=== PATIENT | female | born 1965 | race African-American/Black ===

== ENCOUNTER 2021-03-06 13:05 | Inpatient (IN) | payer OTHER ==
[2021-03-06 14:17] VITALS: BMI 26.9
[2021-03-06] MEDS ORDERED: NICOTINE POLACRILEX 2 MG GUM BUC PRN (15:58)
[2021-03-06] MEDS ORDERED: ACETAMINOPHEN 325 MG TABLET (FP) PO PRN ×2 (15:58)
[2021-03-06] MEDS ORDERED: ONDANSETRON *ODT* 4 MG TABLET SL PRN (15:58)
[2021-03-06] MEDS ORDERED: MAGNESIUM CITRATE 300 ML BOTTLE PO PRN (15:58)
[2021-03-06] MEDS ORDERED: IBUPROFEN 400 MG TABLET (FP) PO PRN (15:58)
[2021-03-06] MEDS ORDERED: BISMUTH SUBSALICYLATE 524 MG/30 ML PO PRN (15:58)
[2021-03-06] MEDS ORDERED: MENTHOL/PHENOL 1 EACH UD MM PRN (15:58)
[2021-03-06] MEDS ORDERED: LORazepam 1 MG TABLET PO PRN (15:58)
[2021-03-06] MEDS ORDERED: MAG HYDROX/AL HYDROX/SIMETH 30 ML UNIT-DOSE CUP PO PRN (15:58)
[2021-03-06] MEDS ORDERED: MAGNESIUM HYDROX 2400MG/30ML ORAL SUSPENSION 30 ML CUP PO PRN (15:58)
[2021-03-06] MEDS: NICOTINE 14 MG/24 HOURS TOPICAL PATCH TD SCH (18:51)
[2021-03-06] MEDS: hydrOXYzine PAMOATE 25 MG CAPSULE (FP) PO SCH ×2 (18:55→22:16)
[2021-03-06] MEDS: PRENATAL VITAMINS W/ FOLIC ACID TABLET (FP) PO SCH (18:55)
[2021-03-06] MEDS: LORazepam 2 MG TABLET PO SCH ×2 (18:55→22:16)
[2021-03-06] MEDS: INSULIN SLIDING SCALE (NOVOLOG) 1 VIAL SQ SCH ×2 (19:50→22:21)
[2021-03-06] MEDS ORDERED: INSULIN (NOVOLOG) ASPART 100 UNITS/ML 10ML VIAL ONE ×3 (20:27→22:19)
[2021-03-06] MEDS: MELATONIN 5 MG TABLETS PO SCH (22:16)
[2021-03-06] MEDS: THIAMINE HCL 100 MG TABLET (FP) PO SCH (22:16)
[2021-03-06] MEDS: hydrALAZINE HCL 25 MG TABLET (FP) PO SCH (23:50)
[2021-03-07] MEDS: LORazepam 2 MG TABLET PO SCH ×4 (05:50→22:32)
[2021-03-07] MEDS: hydrOXYzine PAMOATE 25 MG CAPSULE (FP) PO SCH ×5 (05:50→22:40)
[2021-03-07] MEDS ORDERED: INSULIN (NOVOLOG) ASPART 100 UNITS/ML 10ML VIAL ONE ×4 (05:53→22:13)
[2021-03-07] MEDS: INSULIN SLIDING SCALE (NOVOLOG) 1 VIAL SQ SCH ×4 (07:05→22:35)
[2021-03-07] MEDS: PRENATAL VITAMINS W/ FOLIC ACID TABLET (FP) PO SCH (10:16)
[2021-03-07] MEDS: NICOTINE 14 MG/24 HOURS TOPICAL PATCH TD SCH (10:16)
[2021-03-07] MEDS: METHOCARBAMOL 500 MG TABLET PO PRN ×2 (10:17→22:35)
[2021-03-07] MEDS: hydrALAZINE HCL 25 MG TABLET (FP) PO SCH ×2 (10:17→22:32)
[2021-03-07] MEDS ORDERED: OXYBUTYNIN CHLORIDE 5 MG TABLET PO SCH (11:15)
[2021-03-07] MEDS: FLUoxetine HCL 10 MG TABLET PO SCH (11:33)
[2021-03-07] MEDS: FLUoxetine HCL 20 MG CAPSULE PO SCH (11:34)
[2021-03-07] MEDS: FAMOTIDINE 20 MG TABLET PO SCH ×2 (12:20→22:31)
[2021-03-07 13:33] LABS: HEMATOCRIT 45.5 % (32.4-45.2); HEMOGLOBIN 15.4 GM/dL (10.7-15.3); MCH 33.7 pg (25.7-33.7); MEAN CELL VOLUME 99.3 fl (80-96); MEAN PLT VOLUME 9.4 fl (7.5-11.1); PLATELET COUNT 145 10^3/uL (134-434); RBC 4.58 M/mm3 (3.60-5.2); RDW 15.3 % (11.6-15.6)
[2021-03-07 13:50] LABS: CHLORIDE 91 mmol/L (98-107); SODIUM 135 mmol/L (136-145)
[2021-03-07 14:10] LABS: ALBUMIN 3.3 g/dl (3.4-5.0); GLUCOSE,RANDOM 122 mg/dL (74-106)
[2021-03-07 14:11] LABS: BLOOD UREA NITROGEN 7.5 mg/dL (7-18); CALCIUM 9.3 mg/dL (8.5-10.1); CO2 33 mmol/L (21-32); CREATININE 0.6 mg/dL (0.55-1.3); SGOT/AST 95 U/L (15-37); SGPT/ALT 97 U/L (13-61)
[2021-03-07 14:12] LABS: TOT PROT 6.7 g/dl (6.4-8.2)
[2021-03-07 14:13] LABS: ALK PHOS 67 U/L (45-117)
[2021-03-07 14:18] LABS: BILIRUBIN,TOTAL 1.3 mg/dL (0.2-1)
[2021-03-07 14:22] LABS: ANION GAP 11 MMOL/L (8-16)
[2021-03-07] MEDS: OXYBUTYNIN CHLORIDE 5 MG TABLET PO SCH ×2 (14:45→22:31)
[2021-03-07] MEDS ORDERED: POTASSIUM CHLORIDE ORAL LIQUID 20 MEQ/15 ML PO ONE ×2 (15:00→19:00)
[2021-03-07] MEDS: MELATONIN 5 MG TABLETS PO SCH (22:31)
[2021-03-07] MEDS: QUEtiapine FUMARATE 50 MG TABLET PO SCH (22:32)
[2021-03-07] MEDS: MONTELUKAST NA 10 MG TABLET PO SCH (22:32)
[2021-03-07] MEDS: THIAMINE HCL 100 MG TABLET (FP) PO SCH (22:32)
[2021-03-08] MEDS: hydrOXYzine PAMOATE 25 MG CAPSULE (FP) PO SCH ×3 (05:47→13:38)
[2021-03-08] MEDS: LORazepam 1 MG TABLET PO SCH ×4 (05:47→22:00)
[2021-03-08] MEDS ORDERED: INSULIN (NOVOLOG) ASPART 100 UNITS/ML 10ML VIAL ONE ×3 (07:36→18:06)
[2021-03-08] MEDS: INSULIN SLIDING SCALE (NOVOLOG) 1 VIAL SQ SCH ×4 (07:44→22:00)
[2021-03-08] MEDS: FLUoxetine HCL 20 MG CAPSULE PO SCH (10:19)
[2021-03-08] MEDS: FAMOTIDINE 20 MG TABLET PO SCH ×2 (10:19→22:00)
[2021-03-08] MEDS: PRENATAL VITAMINS W/ FOLIC ACID TABLET (FP) PO SCH (10:21)
[2021-03-08] MEDS: hydrALAZINE HCL 25 MG TABLET (FP) PO SCH ×2 (10:21→22:00)
[2021-03-08] MEDS: OXYBUTYNIN CHLORIDE 5 MG TABLET PO SCH ×2 (10:22→22:00)
[2021-03-08] MEDS: NICOTINE 14 MG/24 HOURS TOPICAL PATCH TD SCH (10:24)
[2021-03-08] MEDS: FLUoxetine HCL 10 MG TABLET PO SCH (12:35)
[2021-03-08] MEDS ORDERED: POTASSIUM CHLORIDE ORAL LIQUID 20 MEQ/15 ML PO ONE ×2 (14:30→18:30)
[2021-03-08] MEDS: THIAMINE HCL 100 MG TABLET (FP) PO SCH (21:59)
[2021-03-08] MEDS: MELATONIN 5 MG TABLETS PO SCH (21:59)
[2021-03-08] MEDS: QUEtiapine FUMARATE 50 MG TABLET PO SCH (22:00)
[2021-03-08] MEDS: ATORVASTATIN CA 20 MG TABLET (FP) PO SCH (22:00)
[2021-03-08] MEDS: MONTELUKAST NA 10 MG TABLET PO SCH (22:00)
[2021-03-09] MEDS ORDERED: LORazepam 0.5 MG TABLET PO PRN
[2021-03-09] MEDS: LORazepam 0.5 MG TABLET PO SCH ×4 (06:06→22:13)
[2021-03-09] MEDS: INSULIN SLIDING SCALE (NOVOLOG) 1 VIAL SQ SCH ×4 (07:37→23:17)
[2021-03-09] MEDS ORDERED: PATIENT'S OWN MEDICATION (NON-FORMULARY) (Atenolol/Chlorthalidone [Atenolol-Chlorthalidone PO SCH (10:00)
[2021-03-09] MEDS: ASPIRIN COATED 81 MG TABLET.EC PO SCH (10:06)
[2021-03-09] MEDS: FAMOTIDINE 20 MG TABLET PO SCH ×2 (10:06→22:12)
[2021-03-09] MEDS: PRENATAL VITAMINS W/ FOLIC ACID TABLET (FP) PO SCH (10:06)
[2021-03-09] MEDS: NIFEdipine E.R. 90 MG TABLET PO SCH (10:07)
[2021-03-09] MEDS: hydrALAZINE HCL 25 MG TABLET (FP) PO SCH ×2 (10:07→22:15)
[2021-03-09] MEDS: OXYBUTYNIN CHLORIDE 5 MG TABLET PO SCH ×2 (10:08→22:12)
[2021-03-09] MEDS: FLUoxetine HCL 10 MG CAPSULE PO SCH (10:08)
[2021-03-09] MEDS: CHLORTHALIDONE 25 MG TABLET PO SCH (10:08)
[2021-03-09] MEDS: NICOTINE 14 MG/24 HOURS TOPICAL PATCH TD SCH (10:46)
[2021-03-09] MEDS: ATENOLOL 50 MG TABLET (FP) PO SCH (10:48)
[2021-03-09] MEDS ORDERED: INSULIN (NOVOLOG) ASPART 100 UNITS/ML 10ML VIAL ONE ×3 (11:37→22:11)
[2021-03-09] MEDS: QUEtiapine FUMARATE 50 MG TABLET PO SCH (22:11)
[2021-03-09] MEDS: ATORVASTATIN CA 20 MG TABLET (FP) PO SCH (22:12)
[2021-03-09] MEDS: MELATONIN 5 MG TABLETS PO SCH (22:12)
[2021-03-09] MEDS: MONTELUKAST NA 10 MG TABLET PO SCH (22:12)
[2021-03-09] MEDS: THIAMINE HCL 100 MG TABLET (FP) PO SCH (22:12)
[2021-03-09] MEDS: INSULIN (LEVEMIR) 100 UNITS/ML UNITS SQ SCH (23:17)
[2021-03-10] MEDS ORDERED: LORazepam 0.5 MG TABLET PO ONE (05:00)
[2021-03-10] MEDS ORDERED: INSULIN (NOVOLOG) ASPART 100 UNITS/ML 10ML VIAL ONE ×4 (07:03→22:20)
[2021-03-10] MEDS: INSULIN SLIDING SCALE (NOVOLOG) 1 VIAL SQ SCH ×4 (07:06→22:22)
[2021-03-10] MEDS: PRENATAL VITAMINS W/ FOLIC ACID TABLET (FP) PO SCH (10:13)
[2021-03-10] MEDS: ASPIRIN COATED 81 MG TABLET.EC PO SCH (10:13)
[2021-03-10] MEDS: FAMOTIDINE 20 MG TABLET PO SCH ×2 (10:13→22:17)
[2021-03-10] MEDS: FLUoxetine HCL 10 MG CAPSULE PO SCH (10:14)
[2021-03-10] MEDS: CHLORTHALIDONE 25 MG TABLET PO SCH (10:14)
[2021-03-10] MEDS: NIFEdipine E.R. 90 MG TABLET PO SCH (10:14)
[2021-03-10] MEDS: hydrALAZINE HCL 25 MG TABLET (FP) PO SCH ×2 (10:14→22:17)
[2021-03-10] MEDS: OXYBUTYNIN CHLORIDE 5 MG TABLET PO SCH ×2 (10:15→22:17)
[2021-03-10] MEDS: ATENOLOL 50 MG TABLET (FP) PO SCH (10:15)
[2021-03-10] MEDS: NICOTINE 14 MG/24 HOURS TOPICAL PATCH TD SCH (10:18)
[2021-03-10] MEDS: ATORVASTATIN CA 20 MG TABLET (FP) PO SCH (22:17)
[2021-03-10] MEDS: THIAMINE HCL 100 MG TABLET (FP) PO SCH (22:17)
[2021-03-10] MEDS: MONTELUKAST NA 10 MG TABLET PO SCH (22:17)
[2021-03-10] MEDS: QUEtiapine FUMARATE 50 MG TABLET PO SCH (22:17)
[2021-03-10] MEDS: MELATONIN 5 MG TABLETS PO SCH (22:19)
[2021-03-10] MEDS: INSULIN (LEVEMIR) 100 UNITS/ML UNITS SQ SCH (22:22)
[2021-03-11] MEDS: INSULIN SLIDING SCALE (NOVOLOG) 1 VIAL SQ SCH ×3 (08:07→16:40)
[2021-03-11] MEDS: hydrALAZINE HCL 25 MG TABLET (FP) PO SCH (10:04)
[2021-03-11] MEDS: ASPIRIN COATED 81 MG TABLET.EC PO SCH (10:04)
[2021-03-11] MEDS: FAMOTIDINE 20 MG TABLET PO SCH (10:04)
[2021-03-11] MEDS: FLUoxetine HCL 10 MG CAPSULE PO SCH (10:05)
[2021-03-11] MEDS: CHLORTHALIDONE 25 MG TABLET PO SCH (10:06)
[2021-03-11] MEDS: PRENATAL VITAMINS W/ FOLIC ACID TABLET (FP) PO SCH (10:06)
[2021-03-11] MEDS: NIFEdipine E.R. 90 MG TABLET PO SCH (10:06)
[2021-03-11] MEDS: NICOTINE 14 MG/24 HOURS TOPICAL PATCH TD SCH (10:06)
[2021-03-11] MEDS: ATENOLOL 50 MG TABLET (FP) PO SCH (10:07)
[2021-03-11] MEDS ORDERED: INSULIN (NOVOLOG) ASPART 100 UNITS/ML 10ML VIAL ONE ×2 (12:15→16:50)
[2021-03-11 18:12] VITALS: BP 130/78; PULSE 77; TEMP 96.8
== END 2021-03-11 20:15 | disposition other institution (70) | DRG 775 ==
LOC: YASAS 13:05 → Y6N 16:33
PROVIDERS: ADMIT Allergy & Immunology; ATTEND Allergy & Immunology
DX: F10.230 Alcohol dependence with withdrawal, uncomplicated (principal); F17.210 Nicotine dependence, cigarettes, uncomplicated; F10.282 Alcohol dependence with alcohol-induced sleep disorder; F41.9 Anxiety disorder, unspecified; F32.9 Major depressive disorder, single episode, unspecified; I10 Essential (primary) hypertension; E11.9 Type 2 diabetes mellitus without complications; J45.909 Unspecified asthma, uncomplicated; K21.9 Gastro-esophageal reflux disease without esophagitis; R32 Unspecified urinary incontinence; R74.01 Elevation of levels of liver transaminase levels; Z79.4 Long term (current) use of insulin
CPT/HCPCS: 36415; 80053; 82962; 84132; 85027; 86780; 93005; 93010; C9803; U0003; U0005

== ENCOUNTER 2021-03-11 20:58 | Inpatient (IN) | payer OTHER ==
[~2021-03-11 20:58] MED LIST: ACETAMINOPHEN 325 MG TABLET (FP) PO PRN; IBUPROFEN 400 MG TABLET (FP) PO PRN; LOPERAMIDE HCL 2 MG CAPSULE PO PRN; MAG HYDROX/AL HYDROX/SIMETH 30 ML UNIT-DOSE CUP PO PRN; MAGNESIUM CITRATE 300 ML BOTTLE PO PRN; MAGNESIUM HYDROX 2400MG/30ML ORAL SUSPENSION 30 ML CUP PO PRN; NICOTINE POLACRILEX 2 MG GUM BC PRN; P-EPHED 60MG/TRIPROLIDI 2.5MG TABLET PO PRN; guaiFENesin 200 MG/10 ML 10 ML UNIT-DOSE CUPS PO PRN
[2021-03-11] MEDS: INSULIN SLIDING SCALE (NOVOLOG) 1 VIAL SQ SCH ×2 (21:55→22:07)
[2021-03-11] MEDS: hydrOXYzine PAMOATE 25 MG CAPSULE (FP) PO SCH ×2 (21:56→22:12)
[2021-03-11] MEDS: INSULIN (LEVEMIR) 100 UNITS/ML UNITS SQ SCH (22:06)
[2021-03-11] MEDS: MELATONIN 5 MG TABLETS PO SCH (22:11)
[2021-03-11] MEDS: FAMOTIDINE 20 MG TABLET PO SCH (22:11)
[2021-03-11] MEDS: MONTELUKAST NA 10 MG TABLET PO SCH (22:11)
[2021-03-11] MEDS: QUEtiapine FUMARATE 25 MG TABLET PO SCH (22:11)
[2021-03-11] MEDS: ATORVASTATIN CA 20 MG TABLET (FP) PO SCH (22:12)
[2021-03-11] MEDS: THIAMINE HCL 100 MG TABLET (FP) PO SCH (22:12)
[2021-03-11] MEDS: hydrALAZINE HCL 25 MG TABLET (FP) PO SCH (22:57)
[2021-03-12] MEDS: INSULIN SLIDING SCALE (NOVOLOG) 1 VIAL SQ SCH ×4 (06:22→22:07)
[2021-03-12] MEDS: hydrOXYzine PAMOATE 25 MG CAPSULE (FP) PO SCH ×5 (06:23→22:02)
[2021-03-12] MEDS: PRENATAL VITAMINS W/ FOLIC ACID TABLET (FP) PO SCH (10:20)
[2021-03-12] MEDS: FAMOTIDINE 20 MG TABLET PO SCH ×2 (10:21→22:02)
[2021-03-12] MEDS: FLUoxetine HCL 10 MG CAPSULE PO SCH (10:21)
[2021-03-12] MEDS: ASPIRIN COATED 81 MG TABLET.EC PO SCH (10:21)
[2021-03-12] MEDS: hydrALAZINE HCL 25 MG TABLET (FP) PO SCH ×2 (10:21→22:04)
[2021-03-12] MEDS: NIFEdipine E.R. 90 MG TABLET PO SCH (10:22)
[2021-03-12] MEDS: ATENOLOL 50 MG TABLET (FP) PO SCH (10:22)
[2021-03-12] MEDS: NICOTINE 14 MG/24 HOURS TOPICAL PATCH TD SCH (10:24)
[2021-03-12] MEDS: CHLORTHALIDONE 25 MG TABLET PO SCH (11:05)
[2021-03-12] MEDS ORDERED: INSULIN (NOVOLOG) ASPART 100 UNITS/ML 10ML VIAL ONE ×3 (11:54→19:54)
[2021-03-12] MEDS ORDERED: COVID-19 VAC,AD26(JANSSEN)/PF 0.5 ML IM ONE (12:00)
[2021-03-12] MEDS ORDERED: COLLOIDAL OATMEAL 1 BAR EACH TP PRN (14:34)
[2021-03-12] MEDS: MINERAL OIL/PETROLAT/WATER TOPICAL CREAM 113 GM JAR TP SCH (14:46)
[2021-03-12] MEDS ORDERED: PT OWN MED DRAWER 7, Y5N ONE ×2 (16:38→19:56)
[2021-03-12] MEDS: THIAMINE HCL 100 MG TABLET (FP) PO SCH (22:02)
[2021-03-12] MEDS: ATORVASTATIN CA 20 MG TABLET (FP) PO SCH (22:02)
[2021-03-12] MEDS: MONTELUKAST NA 10 MG TABLET PO SCH (22:02)
[2021-03-12] MEDS: QUEtiapine FUMARATE 25 MG TABLET PO SCH (22:02)
[2021-03-12] MEDS: MELATONIN 5 MG TABLETS PO SCH (22:03)
[2021-03-12] MEDS: INSULIN (LEVEMIR) 100 UNITS/ML UNITS SQ SCH (22:06)
[2021-03-13] MEDS: hydrOXYzine PAMOATE 25 MG CAPSULE (FP) PO SCH (06:09)
[2021-03-13] MEDS ORDERED: INSULIN (NOVOLOG) ASPART 100 UNITS/ML 10ML VIAL ONE ×4 (07:06→19:02)
[2021-03-13] MEDS: INSULIN SLIDING SCALE (NOVOLOG) 1 VIAL SQ SCH ×4 (07:43→20:59)
[2021-03-13] MEDS: FLUoxetine HCL 10 MG CAPSULE PO SCH (10:11)
[2021-03-13] MEDS: FAMOTIDINE 20 MG TABLET PO SCH ×2 (10:11→21:03)
[2021-03-13] MEDS: ASPIRIN COATED 81 MG TABLET.EC PO SCH (10:11)
[2021-03-13] MEDS: PRENATAL VITAMINS W/ FOLIC ACID TABLET (FP) PO SCH (10:11)
[2021-03-13] MEDS: CHLORTHALIDONE 25 MG TABLET PO SCH (10:12)
[2021-03-13] MEDS: NIFEdipine E.R. 90 MG TABLET PO SCH (10:12)
[2021-03-13] MEDS: MINERAL OIL/PETROLAT/WATER TOPICAL CREAM 113 GM JAR TP SCH (10:13)
[2021-03-13] MEDS: hydrALAZINE HCL 25 MG TABLET (FP) PO SCH ×2 (10:13→21:03)
[2021-03-13] MEDS: NICOTINE 14 MG/24 HOURS TOPICAL PATCH TD SCH (11:22)
[2021-03-13] MEDS: ATENOLOL 50 MG TABLET (FP) PO SCH (11:24)
[2021-03-13] MEDS ORDERED: PT OWN MED DRAWER 7, Y5N ONE ×2 (13:52→19:03)
[2021-03-13] MEDS: INSULIN (LEVEMIR) 100 UNITS/ML UNITS SQ SCH (21:01)
[2021-03-13] MEDS: THIAMINE HCL 100 MG TABLET (FP) PO SCH (21:03)
[2021-03-13] MEDS: MONTELUKAST NA 10 MG TABLET PO SCH (21:03)
[2021-03-13] MEDS: ATORVASTATIN CA 20 MG TABLET (FP) PO SCH (21:03)
[2021-03-13] MEDS: MELATONIN 5 MG TABLETS PO SCH (21:03)
[2021-03-13] MEDS: QUEtiapine FUMARATE 25 MG TABLET PO SCH (21:03)
[2021-03-14] MEDS ORDERED: INSULIN (NOVOLOG) ASPART 100 UNITS/ML 10ML VIAL ONE ×6 (02:57→22:15)
[2021-03-14] MEDS: INSULIN SLIDING SCALE (NOVOLOG) 1 VIAL SQ SCH ×4 (06:30→22:16)
[2021-03-14] MEDS: PRENATAL VITAMINS W/ FOLIC ACID TABLET (FP) PO SCH (10:29)
[2021-03-14] MEDS: hydrALAZINE HCL 25 MG TABLET (FP) PO SCH ×2 (10:29→22:23)
[2021-03-14] MEDS: ASPIRIN COATED 81 MG TABLET.EC PO SCH (10:29)
[2021-03-14] MEDS: FAMOTIDINE 20 MG TABLET PO SCH ×2 (10:29→22:18)
[2021-03-14] MEDS: MINERAL OIL/PETROLAT/WATER TOPICAL CREAM 113 GM JAR TP SCH (10:30)
[2021-03-14] MEDS: NIFEdipine E.R. 90 MG TABLET PO SCH (10:30)
[2021-03-14] MEDS: CHLORTHALIDONE 25 MG TABLET PO SCH (10:30)
[2021-03-14] MEDS: NICOTINE 14 MG/24 HOURS TOPICAL PATCH TD SCH (10:31)
[2021-03-14] MEDS: ATENOLOL 50 MG TABLET (FP) PO SCH (10:31)
[2021-03-14] MEDS: FLUoxetine HCL 10 MG CAPSULE PO SCH (11:14)
[2021-03-14] MEDS: LORATADINE 10 MG TABLET PO SCH (14:21)
[2021-03-14] MEDS: INSULIN (LEVEMIR) 100 UNITS/ML UNITS SQ SCH (22:14)
[2021-03-14] MEDS: MONTELUKAST NA 10 MG TABLET PO SCH (22:18)
[2021-03-14] MEDS: THIAMINE HCL 100 MG TABLET (FP) PO SCH (22:18)
[2021-03-14] MEDS: ATORVASTATIN CA 20 MG TABLET (FP) PO SCH (22:18)
[2021-03-14] MEDS: QUEtiapine FUMARATE 100 MG TABLET (FP) PO SCH (22:18)
[2021-03-14] MEDS: PSYLLIUM 5.85 GM PACKET PO SCH (22:21)
[2021-03-14] MEDS: MELATONIN 5 MG TABLETS PO SCH (22:21)
[2021-03-15] MEDS ORDERED: INSULIN (NOVOLOG) ASPART 100 UNITS/ML 10ML VIAL ONE ×5 (02:38→22:24)
[2021-03-15] MEDS: INSULIN SLIDING SCALE (NOVOLOG) 1 VIAL SQ SCH ×4 (06:42→21:20)
[2021-03-15] MEDS ORDERED: PT OWN MED DRAWER 7, Y5N ONE ×3 (08:59→16:38)
[2021-03-15] MEDS: FLUoxetine HCL 10 MG CAPSULE PO SCH (10:19)
[2021-03-15] MEDS: MINERAL OIL/PETROLAT/WATER TOPICAL CREAM 113 GM JAR TP SCH (10:19)
[2021-03-15] MEDS: FAMOTIDINE 20 MG TABLET PO SCH ×2 (10:19→21:18)
[2021-03-15] MEDS: NICOTINE 14 MG/24 HOURS TOPICAL PATCH TD SCH (10:19)
[2021-03-15] MEDS: PRENATAL VITAMINS W/ FOLIC ACID TABLET (FP) PO SCH (10:19)
[2021-03-15] MEDS: PSYLLIUM 5.85 GM PACKET PO SCH ×2 (10:19→21:20)
[2021-03-15] MEDS: hydrALAZINE HCL 25 MG TABLET (FP) PO SCH ×2 (10:19→21:18)
[2021-03-15] MEDS: ASPIRIN COATED 81 MG TABLET.EC PO SCH (10:20)
[2021-03-15] MEDS: CHLORTHALIDONE 25 MG TABLET PO SCH (10:20)
[2021-03-15] MEDS: ATENOLOL 50 MG TABLET (FP) PO SCH (10:20)
[2021-03-15] MEDS: LORATADINE 10 MG TABLET PO SCH (10:20)
[2021-03-15] MEDS: NIFEdipine E.R. 90 MG TABLET PO SCH (10:20)
[2021-03-15] MEDS: ATORVASTATIN CA 20 MG TABLET (FP) PO SCH (21:18)
[2021-03-15] MEDS: hydrOXYzine PAMOATE 25 MG CAPSULE (FP) PO PRN (21:18)
[2021-03-15] MEDS: THIAMINE HCL 100 MG TABLET (FP) PO SCH (21:18)
[2021-03-15] MEDS: MONTELUKAST NA 10 MG TABLET PO SCH (21:18)
[2021-03-15] MEDS: QUEtiapine FUMARATE 100 MG TABLET (FP) PO SCH (21:18)
[2021-03-15] MEDS: MELATONIN 5 MG TABLETS PO SCH (21:20)
[2021-03-15] MEDS: INSULIN (LEVEMIR) 100 UNITS/ML UNITS SQ SCH (21:21)
[2021-03-16] MEDS: INSULIN SLIDING SCALE (NOVOLOG) 1 VIAL SQ SCH ×4 (06:21→21:26)
[2021-03-16] MEDS ORDERED: INSULIN (NOVOLOG) ASPART 100 UNITS/ML 10ML VIAL ONE ×2 (06:46→12:04)
[2021-03-16] MEDS: FAMOTIDINE 20 MG TABLET PO SCH ×2 (10:05→21:29)
[2021-03-16] MEDS: LORATADINE 10 MG TABLET PO SCH (10:05)
[2021-03-16] MEDS: ASPIRIN COATED 81 MG TABLET.EC PO SCH (10:05)
[2021-03-16] MEDS: PRENATAL VITAMINS W/ FOLIC ACID TABLET (FP) PO SCH (10:05)
[2021-03-16] MEDS: NIFEdipine E.R. 90 MG TABLET PO SCH (10:06)
[2021-03-16] MEDS: ATENOLOL 50 MG TABLET (FP) PO SCH (10:06)
[2021-03-16] MEDS: hydrALAZINE HCL 25 MG TABLET (FP) PO SCH ×2 (10:06→21:29)
[2021-03-16] MEDS: CHLORTHALIDONE 25 MG TABLET PO SCH (10:07)
[2021-03-16] MEDS: MINERAL OIL/PETROLAT/WATER TOPICAL CREAM 113 GM JAR TP SCH (10:07)
[2021-03-16] MEDS: NICOTINE 14 MG/24 HOURS TOPICAL PATCH TD SCH (10:07)
[2021-03-16] MEDS: PSYLLIUM 5.85 GM PACKET PO SCH (10:07)
[2021-03-16] MEDS: FLUoxetine HCL 10 MG CAPSULE PO SCH (12:00)
[2021-03-16] MEDS ORDERED: PT OWN MED DRAWER 7, Y5N ONE ×2 (16:44→19:32)
[2021-03-16] MEDS: INSULIN (LEVEMIR) 100 UNITS/ML UNITS SQ SCH (21:25)
[2021-03-16] MEDS: DOCUSATE SODIUM 100 MG CAPSULE (FP) PO SCH (21:28)
[2021-03-16] MEDS: ATORVASTATIN CA 20 MG TABLET (FP) PO SCH (21:29)
[2021-03-16] MEDS: MONTELUKAST NA 10 MG TABLET PO SCH (21:29)
[2021-03-16] MEDS: THIAMINE HCL 100 MG TABLET (FP) PO SCH (21:29)
[2021-03-16] MEDS: hydrOXYzine PAMOATE 25 MG CAPSULE (FP) PO PRN (21:29)
[2021-03-16] MEDS: QUEtiapine FUMARATE 100 MG TABLET (FP) PO SCH (21:29)
[2021-03-16] MEDS: MELATONIN 5 MG TABLETS PO SCH (21:30)
[2021-03-17] MEDS: INSULIN SLIDING SCALE (NOVOLOG) 1 VIAL SQ SCH ×4 (06:29→22:39)
[2021-03-17] MEDS ORDERED: INSULIN (NOVOLOG) ASPART 100 UNITS/ML 10ML VIAL ONE ×4 (06:29→20:37)
[2021-03-17] MEDS: FLUoxetine HCL 10 MG CAPSULE PO SCH (10:21)
[2021-03-17] MEDS: PRENATAL VITAMINS W/ FOLIC ACID TABLET (FP) PO SCH (10:21)
[2021-03-17] MEDS: LORATADINE 10 MG TABLET PO SCH (10:22)
[2021-03-17] MEDS: ASPIRIN COATED 81 MG TABLET.EC PO SCH (10:22)
[2021-03-17] MEDS: FAMOTIDINE 20 MG TABLET PO SCH ×2 (10:22→22:34)
[2021-03-17] MEDS: ATENOLOL 50 MG TABLET (FP) PO SCH (10:23)
[2021-03-17] MEDS: NIFEdipine E.R. 90 MG TABLET PO SCH (10:24)
[2021-03-17] MEDS: CHLORTHALIDONE 25 MG TABLET PO SCH (10:24)
[2021-03-17] MEDS: NICOTINE 14 MG/24 HOURS TOPICAL PATCH TD SCH (10:25)
[2021-03-17] MEDS: hydrALAZINE HCL 25 MG TABLET (FP) PO SCH ×2 (10:25→22:33)
[2021-03-17] MEDS: MINERAL OIL/PETROLAT/WATER TOPICAL CREAM 113 GM JAR TP SCH (10:25)
[2021-03-17] MEDS: hydrOXYzine PAMOATE 25 MG CAPSULE (FP) PO PRN (15:52)
[2021-03-17] MEDS: DOCUSATE SODIUM 100 MG CAPSULE (FP) PO SCH (22:33)
[2021-03-17] MEDS: ATORVASTATIN CA 20 MG TABLET (FP) PO SCH (22:33)
[2021-03-17] MEDS: MONTELUKAST NA 10 MG TABLET PO SCH (22:34)
[2021-03-17] MEDS: QUEtiapine FUMARATE 100 MG TABLET (FP) PO SCH (22:34)
[2021-03-17] MEDS: THIAMINE HCL 100 MG TABLET (FP) PO SCH (22:34)
[2021-03-17] MEDS: MELATONIN 5 MG TABLETS PO SCH (22:39)
[2021-03-17] MEDS: INSULIN (LEVEMIR) 100 UNITS/ML UNITS SQ SCH (22:39)
[2021-03-18] MEDS ORDERED: INSULIN (NOVOLOG) ASPART 100 UNITS/ML 10ML VIAL ONE ×3 (06:14→20:55)
[2021-03-18] MEDS: INSULIN SLIDING SCALE (NOVOLOG) 1 VIAL SQ SCH ×4 (06:15→21:44)
[2021-03-18] MEDS: PRENATAL VITAMINS W/ FOLIC ACID TABLET (FP) PO SCH (10:39)
[2021-03-18] MEDS: FAMOTIDINE 20 MG TABLET PO SCH ×2 (10:40→21:46)
[2021-03-18] MEDS: ASPIRIN COATED 81 MG TABLET.EC PO SCH (10:40)
[2021-03-18] MEDS: NICOTINE 14 MG/24 HOURS TOPICAL PATCH TD SCH (10:40)
[2021-03-18] MEDS: LORATADINE 10 MG TABLET PO SCH (10:40)
[2021-03-18] MEDS: FLUoxetine HCL 10 MG CAPSULE PO SCH (10:40)
[2021-03-18] MEDS: CHLORTHALIDONE 25 MG TABLET PO SCH (10:41)
[2021-03-18] MEDS: NIFEdipine E.R. 90 MG TABLET PO SCH (10:41)
[2021-03-18] MEDS: hydrALAZINE HCL 25 MG TABLET (FP) PO SCH ×2 (10:41→21:46)
[2021-03-18] MEDS: ATENOLOL 50 MG TABLET (FP) PO SCH (10:41)
[2021-03-18] MEDS: MINERAL OIL/PETROLAT/WATER TOPICAL CREAM 113 GM JAR TP SCH (11:03)
[2021-03-18] MEDS ORDERED: PT OWN MED DRAWER 7, Y5N ONE (20:56)
[2021-03-18] MEDS: INSULIN (LEVEMIR) 100 UNITS/ML UNITS SQ SCH (21:45)
[2021-03-18] MEDS: MONTELUKAST NA 10 MG TABLET PO SCH (21:46)
[2021-03-18] MEDS: QUEtiapine FUMARATE 100 MG TABLET (FP) PO SCH (21:46)
[2021-03-18] MEDS: ATORVASTATIN CA 20 MG TABLET (FP) PO SCH (21:46)
[2021-03-18] MEDS: THIAMINE HCL 100 MG TABLET (FP) PO SCH (21:46)
[2021-03-18] MEDS: MELATONIN 5 MG TABLETS PO SCH (21:48)
[2021-03-18] MEDS: DOCUSATE SODIUM 100 MG CAPSULE (FP) PO SCH (23:10)
[2021-03-19] MEDS: INSULIN SLIDING SCALE (NOVOLOG) 1 VIAL SQ SCH ×4 (06:24→22:53)
[2021-03-19] MEDS: PRENATAL VITAMINS W/ FOLIC ACID TABLET (FP) PO SCH (10:31)
[2021-03-19] MEDS: ASPIRIN COATED 81 MG TABLET.EC PO SCH (10:31)
[2021-03-19] MEDS: FLUoxetine HCL 10 MG CAPSULE PO SCH (10:31)
[2021-03-19] MEDS: FAMOTIDINE 20 MG TABLET PO SCH ×2 (10:32→22:01)
[2021-03-19] MEDS: NICOTINE 14 MG/24 HOURS TOPICAL PATCH TD SCH (10:32)
[2021-03-19] MEDS: CHLORTHALIDONE 25 MG TABLET PO SCH (10:32)
[2021-03-19] MEDS: LORATADINE 10 MG TABLET PO SCH (10:32)
[2021-03-19] MEDS: ATENOLOL 50 MG TABLET (FP) PO SCH (10:33)
[2021-03-19] MEDS: hydrALAZINE HCL 25 MG TABLET (FP) PO SCH ×2 (10:33→22:01)
[2021-03-19] MEDS: NIFEdipine E.R. 90 MG TABLET PO SCH (10:33)
[2021-03-19] MEDS: MINERAL OIL/PETROLAT/WATER TOPICAL CREAM 113 GM JAR TP SCH (10:36)
[2021-03-19] MEDS ORDERED: HYDROCORTISONE 1% TOPICAL CREAM 30 GM TUBE TP PRN (10:42)
[2021-03-19] MEDS ORDERED: INSULIN (NOVOLOG) ASPART 100 UNITS/ML 10ML VIAL ONE ×2 (12:10→16:41)
[2021-03-19] MEDS ORDERED: PT OWN MED DRAWER 7, Y5N ONE (19:29)
[2021-03-19] MEDS: MONTELUKAST NA 10 MG TABLET PO SCH (22:01)
[2021-03-19] MEDS: QUEtiapine FUMARATE 100 MG TABLET (FP) PO SCH (22:01)
[2021-03-19] MEDS: THIAMINE HCL 100 MG TABLET (FP) PO SCH (22:01)
[2021-03-19] MEDS: ATORVASTATIN CA 20 MG TABLET (FP) PO SCH (22:01)
[2021-03-19] MEDS: DOCUSATE SODIUM 100 MG CAPSULE (FP) PO SCH (22:01)
[2021-03-19] MEDS: INSULIN (LEVEMIR) 100 UNITS/ML UNITS SQ SCH (22:52)
[2021-03-19] MEDS: MELATONIN 5 MG TABLETS PO SCH (23:28)
[2021-03-20] MEDS ORDERED: INSULIN (NOVOLOG) ASPART 100 UNITS/ML 10ML VIAL ONE ×2 (02:59→11:59)
[2021-03-20] MEDS: INSULIN SLIDING SCALE (NOVOLOG) 1 VIAL SQ SCH ×4 (06:05→21:33)
[2021-03-20] MEDS: ASPIRIN COATED 81 MG TABLET.EC PO SCH (10:14)
[2021-03-20] MEDS: PRENATAL VITAMINS W/ FOLIC ACID TABLET (FP) PO SCH (10:14)
[2021-03-20] MEDS: LORATADINE 10 MG TABLET PO SCH (10:14)
[2021-03-20] MEDS: FAMOTIDINE 20 MG TABLET PO SCH ×2 (10:14→21:32)
[2021-03-20] MEDS: FLUoxetine HCL 10 MG CAPSULE PO SCH (10:15)
[2021-03-20] MEDS: hydrALAZINE HCL 25 MG TABLET (FP) PO SCH ×2 (10:15→21:32)
[2021-03-20] MEDS: NIFEdipine E.R. 90 MG TABLET PO SCH (10:16)
[2021-03-20] MEDS: ATENOLOL 50 MG TABLET (FP) PO SCH (10:17)
[2021-03-20] MEDS: CHLORTHALIDONE 25 MG TABLET PO SCH (10:18)
[2021-03-20] MEDS: NICOTINE 14 MG/24 HOURS TOPICAL PATCH TD SCH (10:20)
[2021-03-20] MEDS: MINERAL OIL/PETROLAT/WATER TOPICAL CREAM 113 GM JAR TP SCH (10:20)
[2021-03-20] MEDS: THIAMINE HCL 100 MG TABLET (FP) PO SCH (21:32)
[2021-03-20] MEDS: INSULIN (LEVEMIR) 100 UNITS/ML UNITS SQ SCH (21:32)
[2021-03-20] MEDS: MONTELUKAST NA 10 MG TABLET PO SCH (21:32)
[2021-03-20] MEDS: ATORVASTATIN CA 20 MG TABLET (FP) PO SCH (21:32)
[2021-03-20] MEDS: QUEtiapine FUMARATE 100 MG TABLET (FP) PO SCH (21:32)
[2021-03-20] MEDS: DOCUSATE SODIUM 100 MG CAPSULE (FP) PO SCH (21:32)
[2021-03-20] MEDS: MELATONIN 5 MG TABLETS PO SCH (21:33)
[2021-03-21] MEDS: INSULIN SLIDING SCALE (NOVOLOG) 1 VIAL SQ SCH ×4 (06:09→21:31)
[2021-03-21] MEDS: ASPIRIN COATED 81 MG TABLET.EC PO SCH (10:49)
[2021-03-21] MEDS: FAMOTIDINE 20 MG TABLET PO SCH ×2 (10:49→21:36)
[2021-03-21] MEDS: FLUoxetine HCL 10 MG CAPSULE PO SCH (10:49)
[2021-03-21] MEDS: LORATADINE 10 MG TABLET PO SCH (10:50)
[2021-03-21] MEDS: NICOTINE 14 MG/24 HOURS TOPICAL PATCH TD SCH (10:50)
[2021-03-21] MEDS: ATENOLOL 50 MG TABLET (FP) PO SCH (10:50)
[2021-03-21] MEDS: CHLORTHALIDONE 25 MG TABLET PO SCH (10:51)
[2021-03-21] MEDS: hydrALAZINE HCL 25 MG TABLET (FP) PO SCH ×2 (10:51→21:35)
[2021-03-21] MEDS: PRENATAL VITAMINS W/ FOLIC ACID TABLET (FP) PO SCH (10:55)
[2021-03-21] MEDS: MINERAL OIL/PETROLAT/WATER TOPICAL CREAM 113 GM JAR TP SCH (10:55)
[2021-03-21] MEDS: NIFEdipine E.R. 90 MG TABLET PO SCH (11:54)
[2021-03-21] MEDS ORDERED: INSULIN (NOVOLOG) ASPART 100 UNITS/ML 10ML VIAL ONE ×2 (11:58→18:59)
[2021-03-21] MEDS ORDERED: PT OWN MED DRAWER 7, Y5N ONE (19:00)
[2021-03-21] MEDS: INSULIN (LEVEMIR) 100 UNITS/ML UNITS SQ SCH (21:31)
[2021-03-21] MEDS: DOCUSATE SODIUM 100 MG CAPSULE (FP) PO SCH (21:35)
[2021-03-21] MEDS: THIAMINE HCL 100 MG TABLET (FP) PO SCH (21:35)
[2021-03-21] MEDS: ATORVASTATIN CA 20 MG TABLET (FP) PO SCH (21:36)
[2021-03-21] MEDS: QUEtiapine FUMARATE 100 MG TABLET (FP) PO SCH (21:36)
[2021-03-21] MEDS: MONTELUKAST NA 10 MG TABLET PO SCH (21:36)
[2021-03-21] MEDS: MELATONIN 5 MG TABLETS PO SCH (21:37)
[2021-03-22] MEDS: INSULIN SLIDING SCALE (NOVOLOG) 1 VIAL SQ SCH ×4 (06:13→21:17)
[2021-03-22] MEDS: PRENATAL VITAMINS W/ FOLIC ACID TABLET (FP) PO SCH (10:32)
[2021-03-22] MEDS: LORATADINE 10 MG TABLET PO SCH (10:33)
[2021-03-22] MEDS: ASPIRIN COATED 81 MG TABLET.EC PO SCH (10:33)
[2021-03-22] MEDS: FLUoxetine HCL 10 MG CAPSULE PO SCH (10:33)
[2021-03-22] MEDS: FAMOTIDINE 20 MG TABLET PO SCH ×2 (10:33→21:16)
[2021-03-22] MEDS: NIFEdipine E.R. 90 MG TABLET PO SCH (10:33)
[2021-03-22] MEDS: hydrALAZINE HCL 25 MG TABLET (FP) PO SCH ×2 (10:35→21:15)
[2021-03-22] MEDS: CHLORTHALIDONE 25 MG TABLET PO SCH (10:35)
[2021-03-22] MEDS: ATENOLOL 50 MG TABLET (FP) PO SCH (10:36)
[2021-03-22] MEDS: NICOTINE 14 MG/24 HOURS TOPICAL PATCH TD SCH (10:37)
[2021-03-22] MEDS: MINERAL OIL/PETROLAT/WATER TOPICAL CREAM 113 GM JAR TP SCH (10:38)
[2021-03-22] MEDS ORDERED: INSULIN (NOVOLOG) ASPART 100 UNITS/ML 10ML VIAL ONE (12:28)
[2021-03-22] MEDS: MONTELUKAST NA 10 MG TABLET PO SCH (21:15)
[2021-03-22] MEDS: ATORVASTATIN CA 20 MG TABLET (FP) PO SCH (21:15)
[2021-03-22] MEDS: DOCUSATE SODIUM 100 MG CAPSULE (FP) PO SCH (21:15)
[2021-03-22] MEDS: hydrOXYzine PAMOATE 25 MG CAPSULE (FP) PO PRN (21:15)
[2021-03-22] MEDS: MELATONIN 5 MG TABLETS PO SCH (21:16)
[2021-03-22] MEDS: QUEtiapine FUMARATE 100 MG TABLET (FP) PO SCH (21:16)
[2021-03-22] MEDS: THIAMINE HCL 100 MG TABLET (FP) PO SCH (21:16)
[2021-03-22] MEDS: INSULIN (LEVEMIR) 100 UNITS/ML UNITS SQ SCH (21:18)
[2021-03-23] MEDS: INSULIN SLIDING SCALE (NOVOLOG) 1 VIAL SQ SCH (06:27)
[2021-03-23 08:20] VITALS: TEMP 97.1
[2021-03-23 09:08] VITALS: BP 133/82; PULSE 64
[2021-03-23] MEDS: ATENOLOL 50 MG TABLET (FP) PO SCH (10:02)
[2021-03-23] MEDS: PRENATAL VITAMINS W/ FOLIC ACID TABLET (FP) PO SCH (10:02)
[2021-03-23] MEDS: FAMOTIDINE 20 MG TABLET PO SCH (10:02)
[2021-03-23] MEDS: LORATADINE 10 MG TABLET PO SCH (10:03)
[2021-03-23] MEDS: NIFEdipine E.R. 90 MG TABLET PO SCH (10:03)
[2021-03-23] MEDS: CHLORTHALIDONE 25 MG TABLET PO SCH (10:03)
[2021-03-23] MEDS: FLUoxetine HCL 10 MG CAPSULE PO SCH (10:03)
[2021-03-23] MEDS: ASPIRIN COATED 81 MG TABLET.EC PO SCH (10:03)
[2021-03-23] MEDS: MINERAL OIL/PETROLAT/WATER TOPICAL CREAM 113 GM JAR TP SCH (10:05)
[2021-03-23] MEDS: hydrALAZINE HCL 25 MG TABLET (FP) PO SCH (10:05)
[2021-03-23] MEDS: NICOTINE 14 MG/24 HOURS TOPICAL PATCH TD SCH (10:05)
== END 2021-03-23 10:25 | disposition home or self-care (01) | DRG 772 ==
LOC: YASAS 20:58 → Y5N 21:00
PROVIDERS: ADMIT Allergy & Immunology; ATTEND Allergy & Immunology
PROC: HZ42ZZZ Group Counseling for Substance Abuse Treatment, Cognitive-Behavioral (ICD-10-PCS; principal; 2021-03-11)
DX: F10.20 Alcohol dependence, uncomplicated (principal); F17.210 Nicotine dependence, cigarettes, uncomplicated; F10.24 Alcohol dependence with alcohol-induced mood disorder; F10.282 Alcohol dependence with alcohol-induced sleep disorder; F10.280 Alcohol dependence with alcohol-induced anxiety disorder; F41.8 Other specified anxiety disorders; F32.9 Major depressive disorder, single episode, unspecified; E78.1 Pure hyperglyceridemia; I10 Essential (primary) hypertension; E11.9 Type 2 diabetes mellitus without complications; Z79.4 Long term (current) use of insulin; K21.9 Gastro-esophageal reflux disease without esophagitis; J45.909 Unspecified asthma, uncomplicated; L98.8 Other specified disorders of the skin and subcutaneous tissue
CPT/HCPCS: 0031A; 82962; 91303